=== PATIENT | female | born 1995 | race Two or more races ===

== ENCOUNTER 2018-12-20 13:53 | Emergency (ER) | payer SELFPAY ==
[~2018-12-20] VITALS: Ht 167.6 cm; Wt 56.7 kg
[2018-12-20 13:53] VITALS: BP 135/82
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
--- NOTE | 2018-12-20 15:00 | NUR ---
Patient eloped from facility. ER MD notified.
== END 2018-12-20 15:08 | disposition left against medical advice (07) ==
LOC: ER 13:55
DX: F19.10 Other psychoactive substance abuse, uncomplicated (principal); Z60.2 Problems related to living alone